=== PATIENT | male | born 1985 ===

== ENCOUNTER 2017-12-12 07:49 | Emergency (ER) | payer OTHER ==
[2017-12-12 08:07] VITALS: BP 112/71; PULSE 64; RESP 18; TEMP 98.7; O2SAT 100
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
== END 2017-12-12 08:41 | disposition home or self-care (01) ==
LOC: C.ER 07:49
DX: S33.5XXA Sprain of ligaments of lumbar spine, initial encounter (principal); S13.9XXA Sprain of joints and ligaments of unspecified parts of neck, initial encounter; V89.2XXA Person injured in unspecified motor-vehicle accident, traffic, initial encounter
CPT/HCPCS: 96372; 99283; J1885